=== PATIENT | male | born 1980 | race Caucasian/White ===

== ENCOUNTER → 2019-02-04 09:50 | Outpatient (CLI) | payer OTHER ==
--- NOTE | 2019-02-11 18:38 | ST ---
PATIENT:TATE BROWN MEDICAL RECORD: [id number] SEX: M LOCATION:[facility] ORDER #: ADMISSION DATE: 02/04/19 AGE OF PATIENT: 38 REFERRING PHYSICIAN: INTERPRETING PHYSICIAN: DELIA CARRASCO MD DATE OF SERVICE: 02/04/2019 PROCEDURE: Nuclear stress test. INDICATION: Angina, shortness of breath, dyspnea on exertion, abnormal ECG. He was exercised on standard Nakul protocol for 7 minutes 15 seconds, achieving greater than 85% max target heart rate response with 30 mCi of sestamibi injected at peak stress and 10 mCi used previously for rest images. FINDINGS: Gated SPECT reveals preserved ejection fraction at 67% with good wall motion, thickening, and brightening throughout all segments. SPECT imaging Cardiolite was used as myocardial perfusion agent. There is fixed perfusion defect anteriorly and reversible ischemia inferiorly. The reversibility includes the basal, mid apical, and inferior segments. The fixed perfusion defect anteriorly includes mid anterior and apical anterior. OVERALL IMPRESSION: This is an intermediate risk abnormal nuclear stress test, suggestive of multivessel coronary artery disease with fixed perfusion defect anteriorly and ongoing reversible ischemia inferiorly with preserved ejection fraction, suggestive of possible multivessel coronary artery disease. We will proceed with coronary angiography as followup study. TRANSINT:[id number] Voice Confirmation ID: [id number] DOCUMENT ID: [id number] cc: Elisa Recinos, DELIA Spaulding MD at 1838 CC: [id number] DICTATION DATE: 02/05/19 0941 ANIMAL KEEPER HEAD: 02/05/19 2153 DEP CLI 02/04/19 [place] [id number] [place] [id number]
== END | disposition home or self-care (01) ==
LOC: D.HCCARDIO 09:50
PROVIDERS: ATTEND Internal Medicine Interventional Cardiology
DX: I20.9 Angina pectoris, unspecified (principal)

== ENCOUNTER 2019-02-21 08:39 | Outpatient (CLI) | payer OTHER ==
[~2019-02-21] VITALS: Ht 180.3 cm; Wt 111.4 kg
--- NOTE | ~2019-02-21 | HEMODYNAMI ---
PATIENT:TATE BROWN MEDICAL RECORD: [id number] : 76 LOCATION:[facility] ADMISSION DATE: 02/21/19 Generatedon:02/21/201913:37 Patient name: TATE BROWN Patient #: [id number] SSN : [id number] : 1980 Date of study: 02/21/2019 Page: Of Hemodynamic Procedure Report Patient Data Patient Demographics Procedure consent was obtained First Name: TATE Gender: Male Last Name: STEPHANIE : 1980 Patient #: [id number] Age: 38 year(s) Race: SSN: [id number] Additional ID: [id number] Contact details Address: [address] [place] [address] [place] [place] [facility] Zip code: [address] Past Medical History Performed procedures and imaging results Date Procedure Procedure Results Comments 02/04/2019 Standard Positive->Intermediate exercise stress risk test Allergies: No known allergies Admission Admission Data Admission Date: 02/21/2019 Admission Time: 8:39 Admit Source: Other Insurance Payor: Private health insurance [facility] #: [id number] Height (in.): 71 BSA: 2.3 (m2) Height (cm.): 180.34 BMI: 34.24 (kg/m2) Weight (lbs.): 245.51 Weight (kg.): 111.36 Lab Results Lab Result Date: 02/21/2019 Lab Result Time: 11:15 Biochemistry Name Units Result Min Max BUN mg/dl 18 --(---*)-- 7 18 Creatinine mg/dl 0.9 --(-*--)-- 0.6 1.3 CBC Name Units Result Min Max Hematocrit % 46.2 --(-*--)-- 42 54 Hemoglobin g/dl 16.2 --(--*-)-- 13.5 17.5 Procedure Procedure Types Cath Procedure Diagnostic Procedure LHC LHC w/Coronaries Procedure Description Procedure Date Procedure Date: 02/21/2019 Procedure Start Time: 13:12 Procedure End Time: 13:33 Procedure Staff Name Function Tim Santos MD Performing Physician Alfonzo Florence RT Monitor Michael Olivia RT Scrub Wale Arias RN Nurse Yodit Salguero RN Metal Painter Procedure Data Cath Procedure Fluoroscopy Diagnostic fluoroscopy Total fluoroscopy Time: 5.9 time: 5.9 min min Diagnostic fluoroscopy Total fluoroscopy dose: 564 dose: 564 mGy mGy Contrast Material Contrast Material Type Amount (ml) Isovue 300 58 Entry Location Entry Primary Successful Side Size Upsize Upsize Entry Closure Bradford ccessful Closure Location (Fr) 1 (Fr) 2 (Fr) Remarks Device Remarks Radial Right 6 Fr Mechanical artery Short Compression Femoral Right 5 Fr Exoseal artery Diagnostic catheters Device Type Used For End Catheter Placement DIAGNOSTIC Milbridge 110cm 5 LV Angiography Fr catheter ([id number]) DIAGNOSTIC JL 4.0 5Fr Left Coronary catheter ([id number]) Angiography Procedure Complications No complications Procedure Medications Medication Administration Route Dosage 0.9% NaCl I.V. 100 ml/hr Oxygen etCO2 Nasal cannula 2 l/min Heparin Flush Bag added to field 2 bags (1000units/500ml NS) Lidocaine 2% added to field 20 Radial Cocktail added to field 1 syringe (Verapamil 2mg/Nitro 400mcg/Heparin 1500units) Versed I.V. 2 mg Fentanyl I.V. 100 mcg Radial Cocktail I.A. 1 syringe (Verapamil 2mg/Nitro 400mcg/Heparin 1500units) Radial Cocktail added to field 1 syringe (Verapamil 2mg/Nitro 400mcg/Heparin 1500units) Radial Cocktail I.A. 1 syringe (Verapamil 2mg/Nitro 400mcg/Heparin 1500units) Fentanyl I.V. 50 mcg Versed I.V. 1 mg Lopressor I.V. 5 mg Hemodynamics Rest BSA: 2.3 (m2) O2 Consumption: Estimated: 268.55 (ml/min) O2 Consumption indexed: Estimated:116.76 (ml/min/m) Heart Rate: 56 (bpm) Pressure Samples Time Site Value (mmHg) Purpose Heart Use Rate(bpm) 13:18 LV 137/6,13 EDP 56 Gradients Valve Time Site Site Mean SEP/DFP Peak To Heart Use 1 2 (mmHg) (sec/min) Peak Rate (mmHg) (bpm) Aortic 13:18 LV AO 56 Snapshots Pre Cath Intra NCS Post Cath Vital Signs Time Heart Resp SPO2 etCO2 NIBP (mmHg) Rhythm Pain Sedation Rate (ipm) (%) (mmHg) Status Level (bpm) 13:03:35 65 15 81 32.4 128/85(124) NSR 0 (11) 10(A) , No pain 13:07:49 64 16 90 37.6 140/87(111) NSR 0 (11) 10(A) , No pain 13:12:01 63 17 96 36.9 129/87(120) NSR 0 (11) 9(A) , No pain 13:16:15 63 10 96 34.6 136/91(115) NSR 0 (11) 9(A) , No pain 13:20:31 67 10 96 39.2 141/92(124) NSR 0 (11) 10(A) , No pain 13:24:49 77 13 97 41.4 153/99(126) NSR 0 (11) 9(A) , No pain 13:29:08 68 19 95 43.7 150/105(125) NSR 0 (11) 9(A) , No pain 13:33:21 61 19 97 45.2 139/96(121) NSR 0 (11) 10(A) , No pain Medications Time Medication Route Dose Verified Delivered Reason Notes Effectiveness by by 13:00:55 0.9% NaCl I.V. 100 Wale Wale Per ml/hr Hugo Arias physician RN RN 13:01:06 Oxygen etCO2 2 l/min Wale Wale for low 02 Nasal Lorigan Hugo sats cannula RN RN 13:01:17 Heparin Flush added 2 bags Wale Wale used for Bag to Lorigan Lorigan procedure (1000units/500ml field RN RN NS) 13:01:27 Lidocaine 2% added 20ml Wale Wale for local to vial Lorigan Lorigan anesthetic field RN RN 13:02:10 Radial Cocktail added 1 Wale Wale used for (Verapamil to syringe Lorigan Lorigan procedure 2mg/Nitro RN RN 400mcg/Heparin 1500units) 13:02:39 Versed I.V. 2 mg Wale Wale for sedation Hugo Arias RN RN 13:02:48 Fentanyl I.V. 100 mcg Wale Wale for sedation Hugo Arias RN RN 13:14:45 Radial Cocktail I.A. 1 Wale Tim for (Verapamil syringe Lorigan Danielle vasodilation 2mg/Nitro RN 400mcg/Heparin 1500units) 13:23:44 Radial Cocktail added 1 Wale Wale used for (Verapamil to syringe Lorigan Lorigan procedure 2mg/Nitro field MARCO ANTONIO BERNARD 400mcg/Heparin 1500units) 13:23:52 Radial Cocktail I.A. 1 Wale Tim for (Verapamil syringe Lorigan Danielle vasodilation 2mg/Nitro RN 400mcg/Heparin 1500units) 13:24:02 Fentanyl I.V. 50 mcg Wale Wale for sedation Hugo Arias RN RN 13:25:26 Versed I.V. 1 mg Wale Wale for sedation Lorigan Hugo RN RN 13:32:14 Lopressor I.V. 5 mg Wale Wale for Lorigan Lorigan hypertension RN driver recruiter Log Time Note 12:20:29 Yodit Salguero RN sent for patient. Start room use. 12:44:41 Admit Source: Other 12:45:00 Insurance Payor : Private health insurance 12:45:54 Patient Weight : 245.51 lbs 12:46:00 Patient Height : 71 inches 12:48:09 Lab Result : Hematocrit 46.2 % 12:48:09 Lab Result : BUN 18 mg/dl 12:48:09 Lab Result : Creatinine 0.9 mg/dl 12:48:09 Lab Result : Hemoglobin 16.2 g/dl 12:49:26 Procedure Status Elective Heart Cath (OP). 12:49:38 Time tracking: Regular hours (M-F 7:00 - 5:00) 12:49:42 Plan of Care:Hemodynamics will remain stable., Cardiac rhythm will remain stable., Comfort level will be maintained., Respiratory function will remain adequate., Patient/ family verbilizes understanding of procedure., Procedure tolerated without complication., Recovers from procedure without complications.. 12:49:46 Patient received from Pre/Post Procedure Room to CCL 1 Alert and oriented. Tansferred to table in Supine position. 12:49:48 Signed procedure consent form obtained from patient. 12:49:49 Warm blankets applied, and ric hugger turned on for patient comfort. 12:49:49 Correct patient and procedure confirmed by team. 12:49:50 ECG and BP/O2 sat monitors applied to patient. 12:49:51 Pre-procedure instructions explained to patient. 12:49:51 Pre-op teaching completed and patient verbalized understanding. 12:50:02 H&P Date Dictated: 01/25/2019 Within 30 days and on chart., H&P Addendum completed by physician on day of procedure. (MUST COMPLETE FOR ALL OUTPATIENTS). 12:50:04 Family in waiting room. 12:50:07 Patient NPO since Breakfast. 12:50:15 Patient allergic to No known allergies 12:53:01 Is the patient allergic to Iodine/contrast media? No. 12:53:03 Was the patient premedicated? No 12:53:42 Is patient on blood thinner?No 12:53:56 ACC The patient was administered the following blood thiners within the last 24 hours: None 12:54:09 Patient diabetic? No. 12:54:10 ----Pre-sedation anethsthesia assessment.---- 12:54:12 Previous problem with sedation/anesthesia? No ? 12:54:17 Snore? Yes 12:54:18 Sleep apnea? No 12:54:20 Deviated septum? No 12:54:21 Opens mouth fully? Yes 12:54:38 Sticks out tongue? Yes 12:54:41 Airway obstruction? No ? 12:54:45 Dentures? No ? 12:54:49 Pre procedure: right dorsailis pedis pulse 2+ Normal; easily identifiable; not easily obliterated 12:54:59 Modified Ethan's test Ulnar < 7 seconds 12:56:13 Patient pain scale 0/10 ?. 12:56:57 IV patent on arrival in left antecubital with 0.9% NaCl at O. 12:57:01 Lab results completed and on chart. 12:57:06 Right Radial & Right Groin area was prepped with chlora-prep and draped in sterile fashion 12:57:14 Alarms reviewed by R. N. 12:57:15 Sharps counted by scrub and verified by R.N. 12:59:33 Physician arrived 12:59:33 --------ALL STOP TIME OUT------ 12:59:34 Final Timeout: patient, procedure, and site verified with staff and physician. All members of the team are in agreement. 12:59:37 Right Radial & Right Groin site verified by team. 12:59:42 Fire Safety Assessment: A--An alcohol-based skin anteseptic being used preoperatively., C--Open oxygen or nitrous oxide is being used., D--An ESU, laser, or fiber-optic light is being used. 12:59:47 Physical assessment completed. ASA score P 2 - A patient with mild systemic disease as per Tim Santos MD. 12:59:56 1) 90+ Normal kidney functon but urine findings or structural abnormalities or genetic trait point to kidney disease. 13:00:13 Maximum allowable contrast dose (3.7 X eGFR X 0.75)250 ml. 13:00:27 Sedation plan: IV Moderate Sedation Medication:Versed, Fentanyl 13:00:55 0.9% NaCl 100 ml/hr I.V. was administered by Wale Arias RN; Per physician; 13:00:56 Use device set Radial Dx or PCI 13:00:57 ACIST Syringe (02434) opened to sterile field. 13:00:57 Medline Cath Pack ([id number]) opened to sterile field. 13:00:58 Bag Decanter (2002S) opened to sterile field. 13:00:59 ACIST Hand Control (71325) opened to sterile field. 13:00:59 ACIST Manifold (36122) opened to sterile field. 13:01:00 Tegaderm 4 x 4 (1626W) opened to sterile field. 13:01:01 MBrace Wrist Support (729695892) opened to sterile field. 13:01:02 TR BAND Standard ([id number]) opened to sterile field. 13:01:04 SHEATH 6FR RAIN (4782784) opened to sterile field. 13:01:05 EMERALD Guide Wire (883-002) opened to sterile field. 13:01:06 Oxygen 2 l/min etCO2 Nasal cannula was administered by Wale Arias RN; for low 02 sats; 13:01:17 Heparin Flush Bag (1000units/500ml NS) 2 bags added to field was administered by Wale Arias RN; used for procedure; 13:01:27 Lidocaine 2% 20ml vial added to field was administered by Wale Arias RN; for local anesthetic; 13:02:10 Radial Cocktail (Verapamil 2mg/Nitro 400mcg/Heparin 1500units) 1 syringe added to field was administered by Wale Arias RN; used for procedure; 13:02:17 Vital chart was started 13:02:39 Versed 2 mg I.V. was administered by Wale Arias RN; for sedation; 13:02:48 Fentanyl 100 mcg I.V. was administered by Wale Arias RN; for sedation; 13:10:58 Zero performed for pressure channel P1 13:11:27 Procedure started. 13:11:27 Full Disclosure recording started 13:12:40 Local anesthetic to right radial artery with Lidocaine 2% by Tim Santos MD.INITIAL ACCESS ONLY 13:12:47 A 6 Fr Short sheath was inserted into the Right Radial artery 13:14:13 A DIAGNOSTIC Milbridge 110cm 5 Fr catheter ([id number]) was advanced over the wire and used for LV Angiography. 13:14:45 Radial Cocktail (Verapamil 2mg/Nitro 400mcg/Heparin 1500units) 1 syringe I.A. was administered by Tim Santos MD; for vasodilation; 13:15:49 LV angiography performed. 13:18:12 LV gram done using CARVALHO 13:18:13 LV hemodynamics recorded. 13:18:16 Injector settings: Ml/sec: 5, Volume: 15, 13:18:24 EF : 55 % 13:19:26 RCA angiography performed. 13:20:17 Catheter exchanged over wire. 13:20:25 GUIDE 6FR XBLAD 3.5 catheter ([id number]) opened to sterile field. 13:22:54 6 Fr XBLAD 3.5 guide catheter was inserted over the wire 13:23:44 Radial Cocktail (Verapamil 2mg/Nitro 400mcg/Heparin 1500units) 1 syringe added to field was administered by Wale Arias RN; used for procedure; 13:23:52 Radial Cocktail (Verapamil 2mg/Nitro 400mcg/Heparin 1500units) 1 syringe I.A. was administered by Tim Santos MD; for vasodilation; 13:24:02 Fentanyl 50 mcg I.V. was administered by Wale Arias RN; for sedation; 13:25:26 Versed 1 mg I.V. was administered by Wale Arias RN; for sedation; 13:25:57 Guide catheter removed. 13:26:08 Local anesthetic to right femoral artery with Lidocaine 2% by Tim Santos MD.ADDITIONAL ACCESS 13:26:17 A 5 Fr sheath was inserted into the Right Femoral artery 13:28:25 SHEATH 5FR Henderson (CPR361) opened to sterile field. 13:28:29 A DIAGNOSTIC JL 4.0 5Fr catheter (150132H) was advanced over the wire and used for Left Coronary Angiography. 13:28:37 LCA angiography performed. 13:29:26 Catheter removed. 13:31:22 EXOSEAL 5Fr (EX500) opened to sterile field. 13:31:32 Sheath removed intact; hemostasis achieved with Exoseal to the Right Femoral artery. 13:31:38 Sheath removed intact; hemostasis achieved with Mechanical Compression to the Right Radial artery. 13:31:41 Procedure ended.(Physican Out) 13:31:52 Fluoroscopy time 05.90 minutes. 13:31:57 Fluoroscopy dose: 564 mGy 13:31:57 Flurop Dose total: 564 13:32:14 Lopressor 5 mg I.V. was administered by Wale Arias RN; for hypertension; 13:32:43 Contrast amount:Isovue 300 58ml. 13:32:46 Sharps counted by scrub and verified by R.N. 13:32:49 TR band inflated with 10cc of air. 13:32:50 Insertion/operative site no bleeding no hematoma. 13:32:54 Post-op/insertion site Right Femoral artery dressed using a 4 x 4 and Tegaderm. 13:32:58 Post right femoral artery:stable 13:33:04 Post right radial artery:stable 13:33:07 Post Procedure Pulses reassessed and unchanged 13:33:09 Post procedure: right dorsailis pedis pulse 1+ Palpable, but thready & weak; easily obliterated. 13:33:12 Post procedure rhythm: sinus rhythm 13:33:14 Post procedure instruction explained to patient.Patient verbalizes understanding. 13:33:14 Patient needs reinforcement of post procedure teaching. 13:33:16 Procedure and supply charges have been captured, reviewed, submitted and are correct. 13:33:32 Procedure Complication : No complications 13:33:35 Vital chart was stopped 13:33:40 See physician's report for complete and final results. 13:33:42 Report given to Pre/Post Procedure Room. 13:33:47 Patient transfered to Pre/Post Procedure Room with Stretcher. 13:33:49 Procedure ended. 13:33:49 Full Disclosure recording stopped 13:33:53 End room use (Document Last) Device Usage Item Name Manufacture Quantity Catalog Hospital Part Current Minima l Lot# / Number Charge Number Stock Stock Serial# Code ACIST Acist 1 28506 185781 922365 161026 20 Syringe Medical (08597) Systems Inc Medline Medline 1 [id number] 631749 14544 687299 5 Cath Pack ([id number]) Bag Microtek 1 157725 90125 182577 5 Decanter Medical Inc. () ACIST Hand Acist 1 25935 238962 987215 358155 5 Control Medical (44939) Systems Inc ACIST Acist 1 44712 100794 332835 816754 5 Manifold Medical (36266) Systems Inc Tegaderm 4 3M 1 1626W 565797 409071 051207 5 x 4 (1626W) MBrace Advanced 1 140-0250-00 620284 24779 461433 5 Wrist Vascular Support Dynamics ([id number]) TR BAND Terumo 1 [id number] 679603 679194 433672 40 Standard (PLS05STP) SHEATH 6FR Cardinal 1 [id number] 821748 6304102 008642 5 SimplePons, Inc. [facility] (1870283) EMERALD Cardinal 1 502-455 039171 687788 977280 5 Guide Wire Health (502-455) DIAGNOSTIC Terumo 1 40-5013 805269 932035 642604 5 Milbridge 110cm 5 Fr catheter (136798) GUIDE 6FR Cardinal 1 [id number] 494215 365074 467116 10 XBLAD 3.5 Health catheter (73332866) SHEATH 5FR Terumo 1 CFW549 590103 910350 692054 5 Henderson (IFX628) DIAGNOSTIC Cardinal 1 [id number] 143985 342413 457539 10 JL 4.0 5Fr Health catheter (307021S) EXOSEAL 5Fr Cardinal 1 EX500 590884 988038 630808 10 (EX500) Health Signature Audit [place] Stage Time Signature Unsigned Intra-Procedure 02/21/2019 Michael LUCIA(R) 1:37:02 PM Signatures Performing Physician : Signature : Tim Danielle MD Date : Time : Monitor : Alfonzo Florence RT Signature : Date : Time : Nurse : Wale Lorigan Signature : RN Date : Time : [place] [address] [place] [address]
[2019-02-21] MEDS ORDERED: KLOR-CON 1010 MEQ PO (11:01)
[2019-02-21] MEDS ORDERED: LASIX20 MG PO (11:01)
[2019-02-21 11:12] VITALS: BP 133/89; Ht 180.3 cm; Wt 111.4 kg
[2019-02-21 11:37] LABS: CALC OSMOLALITY 278 mosm/kg (275-300); CARBON DIOXIDE 27.9 mmol/L (21.0-32.0); CHLORIDE - SERUM 106 mmol/L (98-107); CREATININE - SERUM 0.9 mg/dL (0.6-1.3); GLUCOSE 89 mg/dL (74-106); SODIUM 139 mmol/L (136-145); UREA NITROGEN 18 mg/dL (7-18); eGFR NON AFRICAN AMERICAN > 90 mL/min (90-120)
[2019-02-21 12:10] LABS: BASOPHILS 0.5 % (0-2); EOSINOPHILS 4.6 % (0-7); HEMATOCRIT 46.2 % (42.0-54.0); HEMOGLOBIN 16.2 g/dL (13.5-17.5); IMMATURE GRANULOCYTES 0.3 % (0-5); LYMPHOCYTES 38.7 % (15-50); MCH 31.6 pg (26.0-34.0); MCHC 35.1 g/dL (31.0-37.0); MCV 90.2 fL (80.0-100.0); MEAN PLATELET VOLUME 10.1 fL (7.4-10.4); MONOCYTES 7.3 % (2-11); NEUTROPHILS 48.6 % (40-80); PLATELET COUNT 245 10x3/uL (130-400); RBC 5.12 10x6/uL (4.20-6.10); RDW 12.9 % (11.5-14.5); WBC 6.2 10x3/uL (4.8-10.8)
--- NOTE | 2019-02-21 14:02 | NUR ---
1351 RECEIVED PT FROM PRESCHOOL ASSISTANT. DRESSING CDI TO RIGHT GROIN, AREA IS SOFT AND NONTENDER. PEDAL PULSES PALPABLE. HOB IS FLAT. TR BAND CDI TO RIGHT WRIST, FINGERS WARM AND CAP REFILL IS BRISK. RESP WITH EASE ON O2 AT 2LPM VIA NC. DR FERNANDEZ HAS ROUNDED ON PT AND SPOKEN WITH FAMILY. CALL LIGHT IN REACH.
--- NOTE | 2019-02-21 14:07 | NUR ---
DRESSING CDI TO RIGHT GROIN, AREA IS SOFT, PEDAL PULSES PALPABLE. TR BAND IS CDI TO RIGHT WRIST. FINGERS WARM AND CAP REFILL IS BRISK. PT SLEEPING, RESP WITH EASE. FAMILY AT BEDSIDE. CALL LIGHT IN REACH.
--- NOTE | 2019-02-21 14:32 | NUR ---
DRESSING CDI TO RIGHT GROIN, AREA IS SOFT WTIH NO HEMATOMA NOTED. TR BAND IS CDI, FINGERS WARM AND CAP REFILL IS BRISK. RESP WITH EASE ON O2 AT 2LPM VIA NC. SINUS JEAN PAUL AT 54, BP IS 147/94 HOB FLAT, FAMILY AT BEDSIDE.
--- NOTE | 2019-02-21 14:52 | NUR ---
2 CC OF AIR WEANED FROM TR BAND WITH NO BLEEDING NOTED. FINGERS WARM AND CAP REFILL IS BRISK. DRESSING CDI TO RIGTH GROIN, AREA IS SOFT AND NONTENDER. PEDAL PULSES PALPABLE. SINUS JEAN PAUL AT 56, BP IS 141/89.
--- NOTE | 2019-02-21 14:53 | NUR ---
HOB ELEVATED 30 DEGREES AND SANDWICH/ PO FLUIDS SERVED. PT DENIES ANY C/O AT THIS TIME.
--- NOTE | 2019-02-21 15:06 | NUR ---
3 CC OF AIR WEANED FROM TR BAND WITH NO BLEEDING NOTED. FINGERS WARM AND CAP REFILL IS BRISK. DRESSING CDI RIGHT GROIN, PEDAL PULSES PALPABLE. HOB FULLY ELEVATED. PT ANIL SANDWICH AND PO FLUIDS WITH NO NAUSEA. AT BEDSIDE.
--- NOTE | 2019-02-21 16:33 | NUR ---
1520 ALL REMAINING AIR WEANED FROM TR BAND WITH NO BLEEDING NOTED. FINGERS WARM AND CAP REFILL IS BRISK. DRESSING CDI TO RIGHT GROIN, PEDAL PULSES PALPABLE. 1540 IV DC'D WITH CATH INTACT AND PT IS DRESSING FOR DC WITH ASSIST. 1602 PT HAS DRESSED FOR DC TO HOME. 2X2 AND TEGADERM REMAIN CDI TO RIGHT WRIST. PT HAS AMBULTED TO THE BATHROOM AND VOIDED QS. IS ALERT AND DENIES ANY C/O. WRIST IMMOBILIZER IN PLACE. BP RECHECKED AND IS 156/92, HR 51, SAT 96% ON ROOM AIR. PT DENIES ANY N/V DEFICIT TO RIGHT HAND OR LEG. HAS ALL PERSONAL BELONGINGS AND DC INSTRUCTIONS AT TIME OF DISCHARGE. PT ESCORTED TO PRIVATE AUTO VIA WC BY NURSE WITH DRIVING HIM HOME.
--- NOTE | 2019-02-22 10:32 | OP ---
PATIENT NAME: TATE BROWN MEDICAL RECORD: [id number] :76 LOCATION:[facility] ADMISSION DATE: SURGEON: PATO FERNANDEZ MD DATE OF OPERATION: 02/21/2019 PROCEDURE: Left heart catheterization, selective coronary angiography, right radial and femoral artery approach. CATHETERS: A 5-Armenian sheath, [place] catheter, and JL4 catheter. The procedure was well tolerated. The patient was returned to the chowdary. Sheath was removed. Adequate hemostasis and TR band as well as ExoSeal device were placed. FINDINGS: Left ventriculography in 30-degree CARAVLHO view; normal wall motion and normal systolic function. CORONARY ANATOMY: LEFT MAIN: Left main is free of disease. LAD: Free of disease in the diagonal system. CIRCUMFLEX: Free of disease in the marginal system. RIGHT CORONARY ARTERY: Dominant artery, gives rise to PDA, free of disease. IMPRESSION: Normal LV systolic function. Normal coronary anatomy. TRANSINT:[id number] Voice Confirmation ID: [id number] DOCUMENT ID: [id number] PATO FERNANDEZ MD at 1032 CC: [id number] DICTATION DATE: 02/21/19 1341 NIGHT ASSISTANT: 02/21/19 1514 DEP CLI 02/21/19 [facility] [address] [place] [address]
== END 2019-02-21 16:02 | disposition home or self-care (01) ==
LOC: D.CATH 08:39
PROVIDERS: ATTEND Internal Medicine Interventional Cardiology
DX: I20.9 Angina pectoris, unspecified (principal); Z01.812 Encounter for preprocedural laboratory examination